=== PATIENT | female | born 1945 | race Caucasian/White ===

== ENCOUNTER → 2017-02-16 | Outpatient (CLI) | payer MEDICARE ==
[~2017-02-16] MED LIST: ACETAMINOPHEN PO; ADVAIR 2501 DISK W/D PO; ALLEGRA PO; AMITIZA24 MCG PO; AMLODIPINE BESYL5 MG PO; ASPIRINEC PO; AZOR 5-20 MG T1 EACH PO; BUPROPION HCL150 MG PO; CALCIUM 500 + D1 TAB PO; CELEXA PO; COLACE PO; COUMADIN PO; DOCUSATE SODIU100 MG PO; EFFEXOR XR PO; FISH OIL 1,0001 CA2 PO; FISH OIL 1,0001 CAP PO; GLUCOPHAGE XR500 MG PO; LIPITOR PO; LISINOPRIL PO; METFORMIN PO; MOBIC15 MG PO; MULTI-DAY1 TAB PO; MULTI-VITAMIN1 TAB PO; Metoprolol; NAPROSYN500 MG PO; NAPROXEN PO; RYTHMOL PO; SENNA PO; VISION VITAMIN1 EACH PO; VIT B6; VIT C; WARFARIN SODIU7.5 M1 PO; WARFARIN SODIUM10 M1 PO; XARELTO20 MG PO; XENICAL120 MG PO
--- NOTE | ~2017-02-16 | CR63 ---
[facility] A Service of [facility] RADIOLOGY TEXT RESULTS PATIENT: KIRAN SLOAN LOCATION: [facility] : 45 UNIT #: [id number] AGE: [address]: Addison Cheatham MD SEX: F ORDER DR: [id number] [facility] [address] [place], [place] [address] [id number] O MR#: [id number] Acc #: [id number] NAME: KIRAN SLOAN. : 1945 SEX: F STUDY DATE/TIME: 02/16/2017 12:22 UNIT: [facility] ROOM: STUDY DESCRIPTION: CR Chest 2 View Attending Physician: Addison Cheatham M.D. Referring Physician: Addison Cheatham M.D. Ordering Physician: Addison Cheatham M.D. Primary Care Physician: Kp Posey M.D. MEDICAL IMAGING REPORT This report is preliminary unless electronic signature is present EXAM Chest x-ray, 02/16/2017. HISTORY 71-year-old female with a past history of previous right lung surgery for lung cancer. Former smoker. Patient notes new onset shortness of air today. TECHNIQUE PA and lateral upright chest series. FINDINGS Postop changes of partial right pneumonectomy. COPD. The lungs appear clear. No visible pulmonary infiltrate or pleural effusion. Heart size is normal. Prominent and tortuous thoracic aorta. Benign calcified granuloma in the right upper lung medially. No change since 08/10/2016. IMPRESSION 1. No active disease. 2. Postop partial right pneumonectomy. 3. COPD. Dictated by... Declan Huff M.D. THIS IS AN ELECTRONICALLY VERIFIED REPORT Declan Huff M.D. at 02/17/2017 4:35 PM RGW/tmw TD: 02/16/2017 16:04 JOB #: [id number] [facility] A Service of [facility] RADIOLOGY TEXT RESULTS PATIENT: KIRAN SLOAN LOCATION: [facility] #: [id number] : 45 UNIT #: [id number] AGE: [address]: Addison Cheatham MD SEX: F ORDER DR: MEDICAL IMAGING REPORT Page 1 of 1 COPY
== END | disposition home or self-care (01) ==
LOC: CRAD 11:53
DX: Z08 Encounter for follow-up examination after completed treatment for malignant neoplasm (principal); J44.9 Chronic obstructive pulmonary disease, unspecified; Z85.118 Personal history of other malignant neoplasm of bronchus and lung; Z90.2 Acquired absence of lung [part of]
CPT/HCPCS: 71020